=== PATIENT | female | born 1980 | race Caucasian/White ===

== ENCOUNTER 2021-12-11 22:36 | Emergency (ER) | payer MEDICAID, SELFPAY ==
--- NOTE | 2021-12-11 22:41 | XRR_ITS ---
PROCEDURE INFORMATION: Exam: XR Chest Exam date and time: 12/11/2021 10:44 PM Age: 41 years old Clinical indication: Chest wall pain; Additional info: Cp TECHNIQUE: Imaging protocol: XR of the chest. Views: 1 view. COMPARISON: No relevant prior studies available. FINDINGS: Lungs: Lungs are clear. Pleural spaces: There is no pleural effusion or pneumothorax. Heart/Mediastinum: Cardiomediastinal contours are unremarkable. Bones/joints: Bones are unremarkable. XR/XR chest 1V portable [id number] IMPRESSION: No acute findings.
--- NOTE | 2021-12-11 22:41 | ECG_ITS ---
[facility] Test Date: 2021-12-11 Pat Name: Karla Simpson Department: Room: Gender: Female [employer] Business Intelligence Developer: : 1980 Requested By: Wan Pino Order Number: [id number] Jon MD: Tato Rivers M.D. Measurements Intervals [place] Rate: 89 P: 41 NH: 166 QRS: 28 QRSD: 82 T: 22 QT: 359 QTc: 438 Interpretive Statements SINUS RHYTHM No previous ECG available for comparison Electronically Signed On 12-12-2021 20:50:50 CDT by Tato Rivers M.D. [id number]
[2021-12-11 22:54] VITALS: BP 178/105; PULSE 88; RESP 20; TEMP 36.7; O2SAT 97; BMI 23.3
[2021-12-11 22:58] LABS: Basophils # 0.1 10^3/uL (0.0-0.1); Basophils % 0.9 %; Eosinophils # 0.2 10^3/uL (0.0-0.8); Eosinophils % 3.3 %; Hematocrit 39.6 % (37.0-47.0); Hemoglobin 13.3 g/dL (11.5-15.3); Lymphocytes # 2.5 10^3/uL (0.8-4.8); Lymphocytes % 36.4 %; Mean Corpuscular HGB Conc 33.6 g/dL (30.0-36.0); Mean Corpuscular Hemoglobin 30.7 pg (28.0-34.0); Mean Corpuscular Volume 91.5 fl (81-99); Mean Platelet Volume 10.8 fL (7.4-10.4); Monocytes # 0.7 10^3/uL (0.2-0.9); Monocytes % 9.8 %; Neutrophils # 3.42 10^3/uL (1.8-7.7); Neutrophils % 49.3 %; Nucleated Red Blood Cells % 0 %; Platelet Count 186 10^3/cmm (130-400); Red Blood Count 4.33 10^6/uL (4.1-5.3); Red Cell Distribution Width 12.6 % (12.1-15.1); White Blood Count 6.9 10^3/uL (4.0-10.0)
--- NOTE | 2021-12-11 23:03 | ED_ITS ---
HPI - Chest Pain General: Chief Complaint: Chest Pain Stated Complaint: CP Time Seen by Provider: 12/11/21 22:41 History of Present Illness: Patient is a 41-year-old female comes to the ED via EMS with chest pain. Patient has a past medical history of anxiety and panic attacks. Patient currently resides at the [facility] and says that her chest pain started earlier today while she was up and ambulating. Pain described as sharp and in the left side of chest. Pain remained constant through the day and into the night, so patient called EMS and they came out and evaluated her. Endorses having some shortness of breath as well. EMS gave patient aspirin and she states that her chest pain has improved. Here in the ED she describes the chest pain as a little tightness, but no pain. She has had panic attack and anxiety episodes like this before and she says this one seems similar to her past anxiety attacks. Patient does state that she takes Vistaril 4 times a day for anxiety. Patient does endorse feeling anxious. Denies any fever, chills, cough, nausea/vomiting, abdominal pain, bladder or bowel symptoms. Associated symptoms: Deny abdominal pain, dyspnea, fever(s), nausea, palpitations or vomiting Review of Systems Const: Denies: fever(s), chills or fatigue Eyes: Denies: change in vision or eye discomfort ENMT: Denies: throat pain, odynophagia, nasal discharge or nasal congestion Card: Reports: chest pain; Denies: palpitations, edema, swelling of feet/ankles, dyspnea on exertion or orthopnea Resp: Denies: dyspnea, productive cough or non-productive cough GI: Denies: abdominal pain, nausea, vomiting, diarrhea, constipation or hematochezia : Denies: flank pain, dysuria or hematuria Musc: Denies: neck pain, back pain or extremity swelling Skin/Breast: Denies: rash or new lesions Neuro: Denies: headache(s), numbness in extremities or weakness in extremities Psych: Reports: anxiety [facility] ED PFSH: Medical History Anxiety Surgical History No pertinent past surgical history Physical Exam Const: COMMON NORMALS: no acute distress, patient oriented x3 and alert GENERAL APPEARANCE: cooperative and anxious HENMT: COMMON NORMALS: normocephalic HEAD & SCALP: normocephalic MOUTH: Normal oral and palatal mucosa present THROAT: posterior oropharynx normal and uvula midline Eye: COMMON NORMALS: Equal, round and reactive pupils present and conjunctivae normal CONJUNCTIVA: Yes conjunctivae normal PUPIL: Yes Equal, round and reactive pupils present Neck/C-Spine: COMMON NORMALS: supple GENERAL: Yes normal visual inspection Resp: COMMON NORMALS: normal respiratory effort, No retractions, No use of accessory muscles and clear to auscultation bilaterally AUSCULTATION: clear to auscultation bilaterally Cardio: COMMON NORMALS: regular rate, regular rhythm, S1 normal heart sound present, S2 normal heart sound present, No gallops present (Cardio), No clicks present (Cardio), No murmurs present (Cardio) and Peripheral pulses 2+ throughout RATE: regular rate RHYTHM: regular rhythm HEART SOUNDS: S1 normal heart sound present and S2 normal heart sound present PERIPHERAL PULSES: Peripheral pulses 2+ throughout GI: COMMON NORMALS: Normal to inspection, nondistended, normoactive bowel sounds present, Soft to palpation, non-tender and no masses PALPATION: Yes Soft to palpation : COMMON NORMALS: Yes no CVA tenderness BLADDER/KIDNEY EXAM: Yes no CVA tenderness Back/Pelvis: COMMON NORMALS: no CVA tenderness Extremity: COMMON NORMALS: normal to inspection and no pedal edema Neuro: COMMON NORMALS: patient oriented x3 and moves all extremities SENSORIUM/ORIENTATION: Yes alert Skin: GENERAL SKIN EXAM: dry skin Course Vital Signs: Vital signs: Vital Signs Temperature 98.1 F 12/11/21 22:54 Pulse Rate 88 12/12/21 00:34 Respiratory Rate 18 12/12/21 00:34 Blood Pressure 152/115 12/12/21 00:34 Pulse Oximetry 96 12/12/21 00:34 MDM - Chest Pain Medical Decision Making Patient is a 41-year-old female comes to the ED with chest pain. Patient has a history of anxiety and says this is similar to her past anxiety attacks. She currently resides at the [facility]. Vitals are stable. Patient appears nontoxic and in no acute distress or pain. She does appear to be a little anx ious. The rest of exam is benign. Labs are unremarkable. Troponin negative. EKG showed no acute findings. Chest x-ray showed no acute findings. Patient was given a dose of Ativan here in the ED and her symptoms improved greatly and she did not have any more chest pain or chest tightness. She was diagnosed with noncardiac chest pain likely due to anxiety and was discharged home. She was told to follow-up with her PCP in the next 3 to 5 days for reevaluation. Return ED precautions given. Patient understood and agreed with plan. Lab Data I reviewed the patient's lab results. : 12/11/21 22:26 12/11/21: Radiology Impressions Chest X-Ray 12/11/21: IMPRESSION: No acute findings. Laboratory Results WBC 6.9 10^3/uL (4.0-10.0) 12/11/21: RBC 4.33 10^6/uL (4.1-5.3) 12/11/21: Hgb 13.3 g/dL (11.5-15.3) 12/11/21: Hct 39.6 % (37.0-47.0) 12/11/21: MCV 91.5 fl (81-99) 12/11/21: MCH 30.7 pg (28.0-34.0) 12/11/21: MCHC 33.6 g/dL (30.0-36.0) 12/11/21: RDW 12.6 % (12.1-15.1) 12/11/21: Plt Count 186 10^3/cmm (130-400) 12/11/21: MPV 10.8 fL (7.4-10.4) H 12/11/21: Neut % (Auto) 49.3 % 12/11/21: Lymph % (Auto) 36.4 % 12/11/21: [place] % (Auto) 9.8 % 12/11/21: Eos % (Auto) 3.3 % 12/11/21: Baso % (Auto) 0.9 % 12/11/21: Neut # (Auto) 3.42 10^3/uL (1.8-7.7) 12/11/21: Lymph # (Auto) 2.5 10^3/uL (0.8-4.8) 12/11/21 22: [place] # (Auto) 0.7 10^3/uL (0.2-0.9) 12/11/21: Eos # (Auto) 0.2 10^3/uL (0.0-0.8) 12/11/21 22: Baso # (Auto) 0.1 10^3/uL (0.0-0.1) 12/11/21: Nucleated RBC % (auto) 0 % 12/11/21: Nucleated RBCs # 0.0 /100WBC 12/11/21 22: Sodium 138 mmol/L (136-145) 12/11/21: Potassium 3.9 mmol/L (3.5-5.1) 12/11/21: Chloride 102 mmol/L (98-107) 12/11/21: Carbon Dioxide 26 mmol/L (22-29) 12/11/21: Anion Gap 13.9 (5-19) 12/11/21: BUN 11 mg/dL (6-20) 12/11/21: Creatinine 0.9 mg/dL (0.5-0.9) 12/11/21: GFR Calculation 68.3 mL/min (90-130) L 12/11/21: Glucose 94 mg/dL (65-115) 12/11/21: Calculated Osmolality 285 mOsm/kg (285-295) 12/11/21: Calcium 8.4 mg/dL (8.5-10.5) L 12/11/21: Total Bilirubin 0.2 mg/dL (0.15-1.2) 12/11/21: AST 20 U/L (0-32) 12/11/21: ALT 18 U/L (0-33) 12/11/21: Alkaline Phosphatase 72 IU/L (35-105) 12/11/21 22: Troponin T Baseline 7 ng/L (0-10) 12/11/21: Troponin T 120 Minute 6.62 ng/L (0-10) 12/12/21 00:30 Delta Troponin T -0.38 ABS# (0-10) L 12/12/21 00:30 Total Protein 6.8 g/dL (6.6-8.7) 12/11/21 22:26 Albumin 4.7 g/dL (3.5-5.2) 12/11/21 22:26 Globulin 2.1 g/dL (1.3-4.6) 12/11/21 22:26 HCG, Qual Negative (Negative) 12/11/21 22:26 EKG Data EKG 1: EKG interpretation date: 12/12/21 Interpretation: Normal sinus rhythm, 88 bpm, no ST segment elevation or depression seen. Discharge Plan Discharge Patient Disposition: Home Clinical Impression: Non-cardiac chest pain Condition: Stable Discharge Orders: Discharge ED (Routine); Ordered 12/12/21 Ordered By: Wan Pino Discharge Diet: Regular Discharge Activity: Resume usual activity Activity Restrictions/Additional Instructions: Follow-up with medical provider as directed in the next 3 to 5 days for reevaluation. Have primary care physician recheck blood pressures and talk to them about potential blood pressure medication if needed. Check your blood pressures a couple times a day and journal the readings so primary care physician can evaluate them. Continue taking all other medications as previously prescribed. Return to the ER or your medical provider if condition worsens. Please read and understand discharge instructions. Thank you for choosing [facility] for your healthcare needs today. Please realize this is an emergency room and that we are providing you with a medical screening exam and this may not be complete and all inclusive of all the testing and or work up that you may need to determine your ailment or severity of your illness. It is very important that you follow up as instructed or that you return to the Emergency Department should you have concerns or if your condition changes or worsens in any way. Coding Level of Care Code ED Ultrasound Tester for Chg Fwd Exam Comprehensive
[2021-12-11 23:29] LABS: Alanine Aminotransferase 18 U/L (0-33); Albumin Level 4.7 g/dL (3.5-5.2); Alkaline Phosphatase 72 IU/L (35-105); Anion Gap 13.9 (5-19); Aspartate Amino Transferase 20 U/L (0-32); Blood Urea Nitrogen 11 mg/dL (6-20); Calcium 8.4 mg/dL (8.5-10.5); Carbon Dioxide 26 mmol/L (22-29); Chloride 102 mmol/L (98-107); Creatinine Clr Calc Pharmacy 78.7453; Globulin 2.1 g/dL (1.3-4.6); Glomerular Filtration Rate 68.3 mL/min (90-130); Glucose 94 mg/dL (65-115); Osmolality Calculated 285 mOsm/kg (285-295); Potassium 3.9 mmol/L (3.5-5.1); Sodium 138 mmol/L (136-145); Total Bilirubin 0.2 mg/dL (0.15-1.2); Total Protein 6.8 g/dL (6.6-8.7)
[2021-12-11] MEDS: LORazepam 2 mg/mL INJ 1 mL 1 MG IVP (23:31)
[2021-12-11 23:32] LABS: Troponin(5th) Baseline 7 ng/L (0-10)
[2021-12-11 23:37] LABS: HCG, Serum Qual Negative (Negative)
[2021-12-12 00:34] VITALS: BP 152/115; PULSE 88; RESP 18; O2SAT 96
--- NOTE | 2021-12-12 00:41 | ECG_ITS ---
[facility] Test Date: 2021-12-12 Pat Name: Karla Simpson Department: Room: Gender: Female [employer] Operator: : 1980 Requested By: Wan Pino Order Number: [id number] Jon MD: Tato Rivers M.D. Measurements Intervals [place] Rate: 88 P: 51 MA: 158 QRS: 66 QRSD: 79 T: 36 QT: 372 QTc: 451 Interpretive Statements SINUS RHYTHM No previous ECG available for comparison Electronically Signed On 12-12-2021 20:56:01 CDT by Tato Rivers M.D. [id number]
[2021-12-12 01:00] LABS: Troponin 5 2HR 6.62 ng/L (0-10)
[2021-12-12 01:04] LABS: Troponin 5 2HR Delta -0.38 ABS# (0-10)
[2021-12-12 01:35] VITALS: BP 135/75; PULSE 90; RESP 16; O2SAT 99
== END 2021-12-12 01:36 | disposition home or self-care (01) ==
PROVIDERS: Emergency Provider Physician Assistant
DX: R07.89 Other chest pain (principal)
CPT/HCPCS: 71045; 80053; 84484; 84703; 85025; 93005; 96374; 99284; J2060